=== PATIENT | female | born 1950 | race Caucasian/White ===

== ENCOUNTER 2017-03-14 20:13 | Emergency (ER) | payer MEDICARE ==
[2017-03-14 20:43] VITALS: BP 183/88
[2017-03-14] MEDS ORDERED: Tetan/Diph/Pertus SYR(Tdap)* 0.5 ML SYR(BOOSTRIX) use SYR IM ONE (20:55)
[2017-03-14] MEDS ORDERED: Lidocaine 2% PF * 5 ML VIAL INJ ONE (20:57)
[2017-03-14] MEDS ORDERED: Cephalexin CAP* 500 MG PO ONE ×2 (21:21)
--- NOTE | 2017-03-14 21:46 | UC ---
Lower Extremity/Ankle HPI - HPI Summary HPI Summary: 66 yo female was barefoot on porch yesterday when she stepped on something FB sensation right heal diabetic now red and swollen has neuropathy - History of Current Complaint Chief Complaint: UCSkin Stated Complaint: RT FOOT INJURY Time Seen by Provider: 03/14/17 20:50 Hx Obtained From: Patient Onset/Duration: Sudden Onset, Lasting Hours Severity Initially: Mild Severity Currently: Mild Pain Intensity: 4 Pain Scale Used: 0-10 Numeric Aggravating Factor(s): Standing, Ambulation Alleviating Factor(s): Rest, Elevation Able to Bear Weight: Yes - Allergies/Home Medications Allergies/Adverse Reactions: Allergies Allergy/AdvReac Type Severity Reaction Status Date / Time Clindamycin Allergy Unknown Verified 03/14/17 20:44 Reaction Details Home Medications: Home Medications Allopurinol TAB* [Zyloprim 100 MG TAB*] 100 mg PO BID 03/14/17 [History Confirmed 03/14/17] Atorvastatin* [Lipitor*] 20 mg PO DAILY 03/14/17 [History Confirmed 03/14/17] Fenofibrate [Lofibra] 160 mg PO DAILY 03/14/17 [History Confirmed 03/14/17] Isosorbide Mononitrate ER TAB* [Imdur ER TAB*] 60 mg PO DAILY 03/14/17 [History Confirmed 03/14/17] Metoprolol Succinate [Toprol Xl] 50 mg PO DAILY 03/14/17 [History Confirmed ] [place]-3 Fatty Acids [[place] 3] 1 cap PO DAILY 03/14/17 [History Confirmed ] amLODIPine TAB* [Norvasc 5 mg TAB*] 10 mg PO DAILY 03/14/17 [History Confirmed 03/14/17] metFORMIN* [Glucophage 1000 MG TAB *] 1,000 mg PO TID 03/14/17 [History Confirmed 03/14/17] PMH/Surg Hx/FS Hx/Imm Hx Previously Healthy: Yes Endocrine History: Diabetes, Dyslipidemia Cardiovascular History: Cardiac Disease, Hypertension Respiratory History: COPD - Surgical History Surgical History: Yes Surgery Procedure, Year, and Place: 2003 multiple surgeries - Family History Known Family History: Positive: Hypertension, Diabetes - Social History Alcohol Use: None Substance Use Type: None Smoking Status (MU): Never Smoked Tobacco Review of Systems Constitutional: Negative Skin: Negative Eyes: Negative ENT: Negative Respiratory: Negative Cardiovascular: Negative Gastrointestinal: Negative Genitourinary: Negative Motor: Negative Neurovascular: Negative Musculoskeletal: Negative Neurological: Negative Psychological: Negative, Anxious All Other Systems Reviewed And Are Negative: Yes Physical Exam Triage Information Reviewed: Yes Appearance: Well-Appearing, No Pain Distress, Well-Nourished Vital Signs: Initial Vital Signs Temp 99.4 F 03/14/17 20:30 Pulse 98 03/14/17 20:30 Resp 16 03/14/17 20:30 BP 183/88 03/14/17 20:30 Pulse Ox 100 03/14/17 20:30 Vital Signs Reviewed: Yes Eyes: Positive: Conjunctiva Clear ENT: Positive: Hearing grossly normal. Negative: Nasal congestion, Nasal drainage, Trismus, Muffled/hoarse voice Neck: Positive: Supple Respiratory: Positive: Lungs clear, Normal breath sounds, No respiratory distress, No accessory muscle use Cardiovascular: Positive: RRR. Negative: No Murmur - 3-4/6 TAMMIE Musculoskeletal: Positive: Other: - some left lower ext atrophy/right foot deviated outward hx back fracture/partial paralysis Neurological: Positive: Alert Psychological Exam: Normal Skin Exam: Other - see image Procedures - Procedure Summary Procedure Summary: attempted FB removal right foot time out sterile prep anest with 1 cc lidocain entrance site opened and probed no fb noted Diagnostics - Radiology No standard instances Xray Interpretation: Positive (See Comments) - ?FB Radiology Interpretation Completed By: Radiologist Lower Extremity Course/Dx - Differential Dx/Diagnosis Provider Diagnoses: suspect retained foreign body right heel Discharge - Discharge Plan Condition: Stable Disposition: HOME Prescriptions: Cephalexin CAP* [Keflex CAP*] 500 mg PO QID #28 cap Patient Education Materials: Soft Tissue Foreign Body (ED) Referrals: Todd Schofield MD [Medical Doctor] - As Soon As Possible Additional Instructions: warm soapy soaks 4x day I suggest you see a surgeon I suspect a retained FB Images Feet (Multiple View): 1 - entrance wound/tender and swollen with surrounding erthyema
--- NOTE | 2017-03-14 22:05 | RAD ---
INDICATION: Right heel pain after patient "stepped on a foreign body" 2 weeks earlier. COMPARISON: None. TECHNIQUE: views of the right foot were obtained. FINDINGS: The adequately corticated bones are properly aligned. Degenerative changes include sclerotic narrowing and remodeling of the right great toe metatarsal phalangeal joint as well as marginal osteophyte formation at the ankle joint. Depicted only on the lateral view there is a very small lucency along the plantar surface of the heel soft tissue immediately anterior to the patient and marking the site of pain. Just anterior to this lucency is a punctate hyperdense focus in the subcutaneous tissue. IMPRESSION: POTENTIAL DERMAL DEFECT AND PUNCTATE FOREIGN BODY DESCRIBED ABOVE. If the patient's symptoms persist, follow-up imaging is recommended.
== END 2017-03-14 22:27 | disposition home or self-care (01) ==
LOC: UCCORT 20:13
DX: S90.851A Superficial foreign body, right foot, initial encounter (principal); W22.8XXA Striking against or struck by other objects, initial encounter; Y93.9 Activity, unspecified; Y92.9 Unspecified place or not applicable; Z23 Encounter for immunization; E11.40 Type 2 diabetes mellitus with diabetic neuropathy, unspecified; Z79.84 Long term (current) use of oral hypoglycemic drugs; E78.5 Hyperlipidemia, unspecified; I51.9 Heart disease, unspecified; I10 Essential (primary) hypertension; J44.9 Chronic obstructive pulmonary disease, unspecified; Z88.1 Allergy status to other antibiotic agents
CPT/HCPCS: 90471; 90715; 99203; A9270-GY; G0463

== ENCOUNTER 2017-03-17 08:12 | Emergency (ER) | payer MEDICARE ==
[2017-03-17 08:35] VITALS: BP 188/89
--- NOTE | 2017-03-17 09:01 | UC ---
Lower Extremity/Ankle HPI - HPI Summary HPI Summary: 66 yo diabetic female with neuropathy seen here three days ago for probable wood fb heel of right foot explored here by me-I was unable to find the FB she was started on Keflex and referred to surgeon she did not make an appt with surgeon and things have worsened markedly f/c 2 days ago increase pain increased redness - History of Current Complaint Chief Complaint: UCLowerExtremity Stated Complaint: RIGHT FOOT PAIN Time Seen by Provider: 03/17/17 08:51 Hx Obtained From: Patient Onset/Duration: Sudden Onset, Lasting Days Severity Initially: Mild Severity Currently: Mild Pain Intensity: 4 Pain Scale Used: 0-10 Numeric Aggravating Factor(s): Standing, Ambulation Alleviating Factor(s): Rest Able to Bear Weight: Yes - Allergies/Home Medications Allergies/Adverse Reactions: Allergies Allergy/AdvReac Type Severity Reaction Status Date / Time Clindamycin Allergy Unknown Verified 03/17/17 08:27 Reaction Details PMH/Surg Hx/FS Hx/Imm Hx Endocrine History: Diabetes, Dyslipidemia Cardiovascular History: Cardiac Disease, Hypertension - Surgical History Surgical History: Yes Surgery Procedure, Year, and Place: [facility] 2003 multiple surgeries. [facility],?[facility] - Family History Known Family History: Positive: Hypertension, Diabetes - Social History Alcohol Use: None Substance Use Type: None Smoking Status (MU): Never Smoked Tobacco Review of Systems Constitutional: Fever, Chills Skin: Negative Eyes: Negative ENT: Negative Respiratory: Negative Cardiovascular: Negative Gastrointestinal: Negative Genitourinary: Negative Motor: Negative Neurovascular: Negative Musculoskeletal: Negative Neurological: Negative Psychological: Negative All Other Systems Reviewed And Are Negative: Yes Physical Exam Triage Information Reviewed: Yes Appearance: Well-Appearing, No Pain Distress, Well-Nourished Vital Signs: Initial Vital Signs Temp 99 F 03/17/17 08:28 Pulse 94 03/17/17 08:28 Resp 20 03/17/17 08:28 BP 188/89 03/17/17 08:28 Pulse Ox 98 03/17/17 08:28 Vital Signs Reviewed: Yes Eyes: Positive: Conjunctiva Clear ENT: Positive: Hearing grossly normal. Negative: Tonsillar exudate, Muffled/ hoarse voice Neck: Positive: Supple, Nontender Respiratory: Positive: Lungs clear, Normal breath sounds, No respiratory distress Cardiovascular: Positive: RRR, No Murmur Musculoskeletal: Positive: Other: - see image Neurological: Positive: Alert Psychological Exam: Normal Skin Exam: Other - see image Lower Extremity Course/Dx - Course Course Of Treatment: needs definitive treatment/exploration. transfered to [facility] ER. d/w Anjelica Barron NP. Pt declines EMS and AMA form signed for that reason - Differential Dx/Diagnosis Provider Diagnoses: retained foreign body right foot. cellulitis Discharge - Discharge Plan Condition: Stable Disposition: TRANS HIGHER LVL OF CARE FAC Images Feet (Multiple View): 1 - large bullous lesion 2 - erthyema 3 - red/swollen
== END 2017-03-17 09:10 | disposition short-term general hospital (02) ==
LOC: UCCORT 08:12
DX: M79.5 Residual foreign body in soft tissue (principal); L03.115 Cellulitis of right lower limb; G62.9 Polyneuropathy, unspecified
CPT/HCPCS: 99212; G0463